=== PATIENT | male | born 1965 | race Caucasian/White ===

== ENCOUNTER → 2018-06-13 | Outpatient (CLI) | payer OTHER | END | disposition home or self-care (01) | LOC: CFH 12:24 | PROVIDERS: ATTEND Family Medicine | DX: M79.662 Pain in left lower leg (principal); R60.0 Localized edema ==

== ENCOUNTER → 2018-08-22 | Outpatient (CLI) | payer OTHER | END | disposition home or self-care (01) | LOC: CFH 09:31 | PROVIDERS: ATTEND Internal Medicine Cardiovascular Disease | DX: I51.7 Cardiomegaly (principal) | CPT/HCPCS: 93306 ==

== ENCOUNTER 2020-11-07 03:50 | Emergency (ER) | payer OTHER ==
[~2020-11-07] VITALS: Ht 167.6 cm; Wt 96.0 kg
--- NOTE | 2020-11-07 04:11 | NUR ---
Changing to gown, emesis bag.
--- NOTE | 2020-11-07 04:15 | NUR ---
Pt states went to friends house for vegan dinner with vegan cheese, unsure if thats causing upset stomach. Went to sleep then around midnight gradual onset of bilat flank pain radiating across abdomen with several episodes of n/v, felt very sweaty.
--- NOTE | 2020-11-07 04:23 | NUR ---
No blood in emesis just previously eaten food, pt states last vomit aprox 330am, pain comes in waves but has been constant. Urine collected and sent.
[2020-11-07] MEDS ORDERED: ONDANSETRON 2MG/ML, 2ML ONE (04:52)
[2020-11-07] MEDS ORDERED: DICYCLOMINE 10 MG/ML, 2ML ONE (04:52)
--- NOTE | 2020-11-07 04:59 | NUR ---
Labs drawn and sent and 2nd stick, IVF infusing. Medicated per order, bentyl IM, zofran IV. Call [place] in reach. Will continue to monitor.
[2020-11-07] MEDS ORDERED: DICYCLOMINE 10 MG/ML, 2ML IM ONE (05:00)
[2020-11-07] MEDS ORDERED: SODIUM CHLORIDE 0.9% 1,000ML IVBOLUS ONE (05:00)
[2020-11-07] MEDS ORDERED: ONDANSETRON 2MG/ML, 2ML IVPush ONE (05:00)
[2020-11-07] MEDS ORDERED: SODIUM CHLORIDE FLUSH 10ML SYR IVF ONE (05:00)
[2020-11-07 05:03] LABS: BASOPHILS % (AUTO) 0 % (0-1); EOSINOPHILS % (AUTO) 1 % (1-7); LYMPHOCYTES % (AUTO) 10 % (22-44); MEAN CORPUSCULAR HEMOGLOBIN 29.3 pg (27.5-34.5); MEAN CORPUSCULAR HGB CONC 33.9 g/dL (33.2-36.2); MEAN PLATELET VOLUME 8.4 fL (7.4-10.4); MONOCYTES % (AUTO) 4 % (2-9); NEUTROPHILS % (AUTO) 85 % (42-75); PLATELET COUNT 181 x10^3/uL (130-400); RED BLOOD COUNT 6.17 x10^6/uL (4.38-5.82); RED CELL DISTRIBUTION WIDTH 14.2 % (9.4-14.8)
[2020-11-07 05:10] LABS: MD NO
[2020-11-07 05:15] LABS: ALANINE AMINOTRANSFERASE 37 U/L (12-78); ALBUMIN 4.3 g/dL (3.4-5.0); ANION GAP 5 mmol/L (5-15); CALCIUM 10.1 mg/dL (8.5-10.1); CHLORIDE 105 mmol/L (98-107); CREATININE 0.97 mg/dL (0.7-1.3)
[2020-11-07 05:17] LABS: ALKALINE PHOSPHATASE 70 U/L (45-117); BILIRUBIN,TOTAL 0.8 mg/dL (0.2-1.0)
[2020-11-07 05:18] LABS: MICROSCOPIC AUTO
[2020-11-07] MEDS ORDERED: OMNIPAQUE 350 MG/ML, 100ML BOTTLE ONE (05:58)
--- NOTE | 2020-11-07 06:33 | NUR ---
Liter infused. Pt reports feeling better than earlier, still has pain more localized to RLQ. Waiting for CT report. On cont pulse ox, b/p. NPO.
--- NOTE | 2020-11-07 06:46 | NUR ---
REPORT RECEIVED FROM [facility] FOR TRANSFER OF PATIENT CARE.
--- NOTE | 2020-11-07 06:54 | NUR ---
ERMD AT BEDSIDE TO DISCUSS POC.
[2020-11-07 07:15] VITALS: BP 164/97
--- NOTE | 2020-11-07 07:34 | NUR ---
Patient given discharge instructions and prescription and they have confirmed that they understand the instructions. Patient stable and ambulatory with steady gait from ED with significant other.
== END 2020-11-07 07:35 | disposition home or self-care (01) ==
LOC: ED 04:09
DX: K56.51 Intestinal adhesions [bands], with partial obstruction (principal); R10.84 Generalized abdominal pain; R11.2 Nausea with vomiting, unspecified; I10 Essential (primary) hypertension
CPT/HCPCS: 36415; 74177; 80053; 81001; 83690; 85025; 93005; 96361; 96372; 96374; 99285; J0500; J2405; J7030; Q9967

== ENCOUNTER → 2021-04-27 | Outpatient (CLI) | payer OTHER ==
[~2021-04-27] MED LIST: OMNIPAQUE 350 MG/ML, 100ML BOTTLE ONE
[2021-04-27 14:48] LABS: CREATININE 0.93 mg/dL (0.7-1.3)
== END | disposition home or self-care (01) ==
LOC: RAD 14:03
PROVIDERS: ATTEND Family Medicine
DX: K57.32 Diverticulitis of large intestine without perforation or abscess without bleeding (principal); K76.89 Other specified diseases of liver; R10.32 Left lower quadrant pain
CPT/HCPCS: 36415; 74177; 82565; Q9967